=== PATIENT | female | born 1975 | race Caucasian/White ===

== ENCOUNTER 2022-10-21 15:45 | Emergency (ER) | payer MEDICAID | END 2022-10-21 16:35 | disposition home or self-care (01) | LOC: JD.ED 15:45 | DX: F15.10 Other stimulant abuse, uncomplicated (principal); M79.621 Pain in right upper arm; M79.622 Pain in left upper arm; R51.9 Headache, unspecified; E11.42 Type 2 diabetes mellitus with diabetic polyneuropathy; F17.210 Nicotine dependence, cigarettes, uncomplicated; Z98.890 Other specified postprocedural states | CPT/HCPCS: 99283; 99284 ==

== ENCOUNTER 2022-11-19 09:16 | Inpatient (IN) | payer MEDICAID ==
[2022-11-19] MEDS ORDERED: Sodium Chloride 0.9% 10 ML Syringe FLUSH PRN (09:28)
[2022-11-19] MEDS ORDERED: HYDROmorphone 0.5 MG/0.5 ML Syringe IVPUSH ONE ×2 (09:30→13:47)
[2022-11-19] MEDS ORDERED: Diphtheria,Pertussis(Acell),Tetanus Vaccine 0.5 ML Syringe IM ONE (09:32)
[2022-11-19 09:42] LABS: BASOPHILS ABSOLUTE AUTO 0.1 K/mm3 (0.0-0.2); BASOPHILS PERCENT AUTO 0.2 % (0.0-1.0); EOSINOPHILS PERCENT AUTO 0.1 % (0.0-6.0); HEMATOCRIT 40.1 % (37.0-47.0); HEMOGLOBIN 12.8 gm/dl (12.0-16.0); IMMATURE GRAN PERCENT AUTO 0.5 % (0.0-0.4); LYMPHOCYTES ABSOLUTE AUTO 2.3 K/mm3 (1.0-4.8); LYMPHOCYTES PERCENT AUTO 10.9 % (24.0-44.0); MEAN CORPUSCULAR HGB CONC 31.9 g/dl (32.0-36.0); MEAN CORPUSCULAR VOLUME 90.9 fl (83.0-99.0); MEAN PLATELET VOLUME 8.9 fl (9.4-12.3); MONOCYTES ABSOLUTE AUTO 2.3 K/mm3 (0.0-0.8); MONOCYTES PERCENT AUTO 10.6 % (0.0-8.0); NEUTROPHILS ABSOLUTE AUTO 16.5 K/mm3 (1.8-7.7); NEUTROPHILS PERCENT AUTO 77.7 % (41.0-71.0); PLATELET COUNT,PLT 396 K/mm3 (150-400); RED BLOOD CELL COUNT 4.41 M/mm3 (4.10-5.30); WHITE BLOOD CELL COUNT,WBC 21.23 K/mm3 (3.9-11.3)
[2022-11-19 10:01] LABS: ALANINE AMINOTRANSFERASE,ALT 24 U/L (14-59); ALBUMIN 3.7 g/dl (3.4-5.0); ALKALINE PHOSPHATASE 71 U/L (46-116); ANION GAP 14.7 (5-15); ASPARTATE AMNIOTRANSFERASE,AST 31 U/L (15-37); BLOOD UREA NITROGEN,BUN 21 mg/dL (7-18); CALCIUM 9.2 mg/dL (8.5-10.1); CARBON DIOXIDE,CO2 26 mEq/L (21-32); CHLORIDE,CL 103 mEq/L (98-107); ESTIMATED GFR 69 mL/min (>60); GLUCOSE RANDOM 157 mg/dL (70-99); LIPASE 82 U/L (73-393); POTASSIUM,K 3.7 mEq/L (3.5-5.1); PROTEIN TOTAL,TP 7.4 g/dl (6.4-8.2); SODIUM,NA 140 mEq/L (136-145)
[2022-11-19 10:23] LABS: SLIDE REVIEW ABNORMAL SMEAR
[2022-11-19] MEDS ORDERED: ceFAZolin 2 GM in Sodium Chloride 0.9% 50 ML IV ONE (10:28)
[2022-11-19] MEDS ORDERED: Ondansetron 4 MG/2 ML SDV ONE (11:08)
[2022-11-19] MEDS ORDERED: Ondansetron 4 MG/2 ML SDV IVPUSH ONE (11:08)
[2022-11-19] MEDS: oxyCODONE 5 MG Tab PO PRN (19:15)
[2022-11-19] MEDS: Ondansetron 4 MG/2 ML SDV IV PRN (19:15)
[2022-11-19] MEDS: Nicotine 14 MG/24 Hr Patch TRDERM SCH (20:53)
[2022-11-19] MEDS: Acetaminophen 325 MG Tab PO PRN (20:54)
[2022-11-19] MEDS: Cephalexin 500 MG Cap PO SCH (20:54)
[2022-11-20] MEDS: oxyCODONE 5 MG Tab PO PRN ×3 (04:20→16:15)
[2022-11-20] MEDS: Acetaminophen 325 MG Tab PO PRN ×2 (08:19→19:41)
[2022-11-20] MEDS: Cephalexin 500 MG Cap PO SCH ×4 (08:19→19:41)
[2022-11-20] MEDS: Nicotine 14 MG/24 Hr Patch TRDERM SCH (08:20)
[2022-11-20] MEDS ORDERED: Calcium Carbonate 500 MG Tab.Chew PO PRN (08:39)
[2022-11-20] MEDS: Ondansetron 4 MG/2 ML SDV IV PRN (08:52)
[2022-11-20] MEDS ORDERED: Enoxaparin 40 MG/0.4 ML Syringe SUBCUT SCH (09:00)
[2022-11-20] MEDS ORDERED: Docusate Sodium 100 MG Cap PO SCH (12:00)
== END 2022-11-20 19:45 | disposition home or self-care (01) | DRG 563 ==
LOC: JD.ED 09:16 → JD.MS 17:34
PROVIDERS: ADMIT Internal Medicine; ATTEND Internal Medicine
PROC: 3E0234Z Introduction of Serum, Toxoid and Vaccine into Muscle, Percutaneous Approach (ICD-10-PCS; principal; 2022-11-19)
DX: S82.451B Displaced comminuted fracture of shaft of right fibula, initial encounter for open fracture type I or II (principal); S82.251B Displaced comminuted fracture of shaft of right tibia, initial encounter for open fracture type I or II; K21.9 Gastro-esophageal reflux disease without esophagitis; J45.909 Unspecified asthma, uncomplicated; E11.42 Type 2 diabetes mellitus with diabetic polyneuropathy; H54.7 Unspecified visual loss; Z23 Encounter for immunization; F17.210 Nicotine dependence, cigarettes, uncomplicated; F41.9 Anxiety disorder, unspecified; F32.A Depression, unspecified; F15.10 Other stimulant abuse, uncomplicated; I95.9 Hypotension, unspecified; Z79.899 Other long term (current) drug therapy; Z98.890 Other specified postprocedural states; Z90.49 Acquired absence of other specified parts of digestive tract; W10.9XXA Fall (on) (from) unspecified stairs and steps, initial encounter
CPT/HCPCS: 29505; 36415; 70450; 70450-26; 71045; 71045-26; 72125; 72125-26; 731102650; 73110-50; 73552-26-LT; 73552-LT; 73590-26-LT; 73590-26-RT; 73590-LT; 73590-RT; 80053; 83690; 85025; 90471; 90715; 96365; 96375; 96376; 97116-GP; 97162-GP; 99285-25; A9270-GY; J0690; J1170; J1650; J2405; J3490

== ENCOUNTER 2022-11-23 07:01 | Emergency (ER) | payer MEDICAID ==
[2022-11-23] MEDS ORDERED: Lidocaine 1% 10 ML MDV INJECT ONE (08:28)
== END 2022-11-23 09:40 | disposition left against medical advice (07) ==
LOC: JD.ED 07:01
DX: S62.615A Displaced fracture of proximal phalanx of left ring finger, initial encounter for closed fracture (principal); J45.909 Unspecified asthma, uncomplicated; K21.9 Gastro-esophageal reflux disease without esophagitis; E11.42 Type 2 diabetes mellitus with diabetic polyneuropathy; Z79.899 Other long term (current) drug therapy; Z88.8 Allergy status to other drugs, medicaments and biological substances; Z88.5 Allergy status to narcotic agent; Z98.890 Other specified postprocedural states
CPT/HCPCS: 73130-26-LT; 73130-LT; 73590-26-RT; 73590-RT; 73630-26-RT; 73630-RT; 99282; 99283

== ENCOUNTER 2022-12-03 08:59 | Day surgery (SDC) | payer MEDICAID ==
[~2022-12-03 08:59] MED LIST: Lactated Ringers 1,000 ML IV SCH; Sodium Chloride 0.9% 10 ML Syringe FLUSH PRN
[2022-12-03] MEDS ORDERED: Sodium Chloride 0.9% 10 ML Syringe FLUSH SCH (09:00)
[2022-12-03 09:34] LABS: BARBITURATE SCREEN,URINE NEGATIVE (CUTOFF=200); BENZODIAZEPINES SCREEN,URINE NEGATIVE (CUTOFF=150); BUPRENORPHINE SCREEN,URINE NEGATIVE (CUTOFF=10); METHADONE SCREEN, URINE NEGATIVE (CUTOFF=200); METHAMPHETAMINES SCREEN, URINE PRESUMPTIVE POSITIVE (CUTOFF=500); OXYCODONE SCREEN,URINE NEGATIVE (CUT0FF=100); PROPOXYPHENE SCREEN,URINE NEGATIVE (CUTOFF=300); THC SCREEN,URINE 20 NG/ML NEGATIVE (CUTOFF=50)
[2022-12-03 09:35] LABS: AMPHETAMINES SCREEN, URINE PRESUMPTIVE POSITIVE (CUTOFF=500)
[2022-12-03] MEDS ORDERED: fentaNYL 100 MCG/2 ML SDV ONE (10:22)
[2022-12-03] MEDS ORDERED: Midazolam 1 MG/ML 2 ML SDV ONE ×2 (10:22→10:25)
[2022-12-03] MEDS ORDERED: Propofol 200 MG/20 ML SDV ONE (10:22)
[2022-12-03] MEDS ORDERED: Lidocaine 1% 5 ML VIAL ONE (10:22)
[2022-12-03] MEDS ORDERED: Phenylephrine 1% 10 MG/ML SDV ONE (10:25)
[2022-12-03] MEDS ORDERED: ePHEDrine 50 MG/ML SDV ONE (10:31)
[2022-12-03] MEDS ORDERED: Ketamine 500 mg/10 ML MDV ONE (10:47)
[2022-12-03] MEDS ORDERED: Ondansetron 4 MG/2 ML SDV ONE (10:55)
[2022-12-03] MEDS ORDERED: Acetaminophen/oxyCODONE 325-5 MG Tab PO SCH (12:45)
== END 2022-12-03 15:20 | disposition home or self-care (01) ==
LOC: JD.SDS 08:59
PROVIDERS: ATTEND Orthopaedic Surgery
DX: S82.301A Unspecified fracture of lower end of right tibia, initial encounter for closed fracture (principal); S82.831A Other fracture of upper and lower end of right fibula, initial encounter for closed fracture; S62.615A Displaced fracture of proximal phalanx of left ring finger, initial encounter for closed fracture; R73.03 Prediabetes; E78.5 Hyperlipidemia, unspecified; F41.9 Anxiety disorder, unspecified; F17.210 Nicotine dependence, cigarettes, uncomplicated; F31.9 Bipolar disorder, unspecified; K21.9 Gastro-esophageal reflux disease without esophagitis; Z79.899 Other long term (current) drug therapy; Z88.8 Allergy status to other drugs, medicaments and biological substances; Z88.5 Allergy status to narcotic agent; Z86.73 Personal history of transient ischemic attack (TIA), and cerebral infarction without residual deficits; Z79.82 Long term (current) use of aspirin
CPT/HCPCS: 26725; 27788; 27825; 76000; 80306; 81025; 82947; 87641; A9270; J2250; J2370; J2405; J2704; J3010; J3490; J7120; 01462